=== PATIENT | female | born 1990 | race Caucasian/White ===

== ENCOUNTER → 2018-07-08 | Outpatient (CLI) | payer OTHER ==
--- NOTE | 2018-07-08 11:35 | DIAGNOSTIC IMAGING REPORT ---
(BARIUM SWALLOW) ESOPHAGUS CLINICAL HISTORY: ABDOMINAL PAIN, EPIGASTRIC, GLOBUS SENSATION COMPARISON STUDY: None. FLUOROSCOPY TIME: 1.1 minute. 24 fluoroscopic spot images.. FINDINGS: The patient swallowed barium without difficulty. The contours of the hypopharynx are within normal limits. The esophagus is normal and course, caliber, motility. No hiatus hernia. Moderate gastroesophageal reflux demonstrated during the examination. The barium tablet passed without difficulty. IMPRESSION: Moderate gastroesophageal reflux. Electronically signed by: Isaiah Roland M.D. 07/08/2018 11:34 AM Dictated Date/Time: 07/08/2018 11:32 AM
== END | disposition home or self-care (01) ==
LOC: C.RAD 11:03
PROVIDERS: ATTEND Physician Assistant
DX: F45.8 Other somatoform disorders (principal); R11.0 Nausea; R10.13 Epigastric pain; K21.9 Gastro-esophageal reflux disease without esophagitis